=== PATIENT | male | born 1995 | race Caucasian/White ===

== ENCOUNTER 2021-05-13 21:19 | Emergency (ER) | payer OTHER ==
[~2021-05-13 21:19] MED LIST: ZOLOFT50 MG PO
[2021-05-13 22:59] LABS: BASOPHIL 0.4 % (0-2); EOSINOPHIL 1.1 % (0-5); HCT 40.3 % (42.0-52.0); HGB 13.2 g/dl (13.2-18.0); LYMPHOCYTE 12.9 % (15-48); MCH 27.7 pg (25.0-31.0); MCHC 32.8 g/dL (32.0-36.0); MCV 84.5 fL (78.0-100.0); MONOCYTE 4.9 % (0-12); MPV 10.5 fL (6.0-9.5); NEUTROPHIL 80.3 % (41-80); NRBC 0; PLT 190 K/uL (150-400); RBC 4.77 M/uL (4.70-6.00); RDW 12.5 % (11.5-14.0)
[2021-05-13 23:16] LABS: BUN/CREAT RATIO (CALC) 15.2 RATIO; CREATININE 0.92 mg/dL (0.67-1.17)
== END 2021-05-13 23:48 | disposition home or self-care (01) ==
LOC: FER 21:19
PROVIDERS: Nurse Practitioner Family
DX: R07.89 Other chest pain (principal); F41.9 Anxiety disorder, unspecified
CPT/HCPCS: 36415; 71045; 80048; 84484; 85025; 85379; 93005

== ENCOUNTER 2021-06-09 19:11 | Emergency (ER) | payer OTHER ==
[2021-06-09 21:24] LABS: BASOPHIL 0.6 % (0-2); EOSINOPHIL 1.6 % (0-5); HCT 44.8 % (42.0-52.0); HGB 14.8 g/dl (13.2-18.0); LYMPHOCYTE 24.6 % (15-48); MCV 84.8 fL (78.0-100.0); MONOCYTE 5.8 % (0-12); MPV 10.7 fL (6.0-9.5); NEUTROPHIL 67.3 % (41-80); NRBC 0; PLT 215 K/uL (150-400); RBC 5.28 M/uL (4.70-6.00); RDW 12.7 % (11.5-14.0)
[2021-06-09 21:33] LABS: BUN/CREAT RATIO (CALC) 16.8 RATIO; CREATININE 1.01 mg/dL (0.67-1.17); POTASSIUM 3.5 mmol/L (3.5-5.1)
[2021-06-09 22:11] LABS: MARIJUANA (THC) NEGATIVE (NEGATIVE)
[2021-06-09 22:12] LABS: AMPHETAMINES NEGATIVE (NEGATIVE); BARBITURATES NEGATIVE (NEGATIVE); ECSTASY (MDMA) NEGATIVE (NEGATIVE); METHADONE NEGATIVE (NEGATIVE); OPIATES NEGATIVE (NEGATIVE); OXYCODONE NEGATIVE (NEGATIVE)
[2021-06-10] MEDS ORDERED: VENTOLIN HFA IN18 GM INH (00:16)
== END 2021-06-10 01:24 | disposition home or self-care (01) ==
LOC: FER 19:11
PROVIDERS: Nurse Practitioner Family
DX: U07.1 COVID-19 (principal); R07.89 Other chest pain
CPT/HCPCS: 36415; 71046; 80048; 80305; 85025; 93005; J7030